=== PATIENT | male | born 1960 | race Caucasian/White ===

== ENCOUNTER → 2016-06-08 | Outpatient (CLI) | payer BC ==
--- NOTE | ~2016-06-08 | US136 ---
[facility] A Service of [facility] RADIOLOGY TEXT RESULTS PATIENT: EZE LYMAN LOCATION: CNIV : 58 UNIT #: [id number] AGE: [address]: Jyoti Wagner MD SEX: M ORDER DR: [id number] [place], [place] [address] [id number] O MR#: [id number] Acc #: [id number] NAME: EZE LYMAN : 1960 SEX: M STUDY DATE/TIME: 06/08/2016 9:08 UNIT: CNIV ROOM: STUDY DESCRIPTION: U/L [facility] Art Study [facility] Bil Attending Physician: Jyoti Wagner M.D. Referring Physician: Jyoti Wagner M.D. Ordering Physician: Jyoti Wagner M.D. Primary Care Physician: Jyoti Wagner M.D. MEDICAL IMAGING REPORT This report is preliminary unless electronic signature is present EXAM Ankle-brachial indices, 06/08/2016 HISTORY Claudication FINDINGS The right brachial pressure is 189 and the left brachial pressure is 184. The right dorsalis pedis pressure is 153, posterior tibial 178, and toe 72 for ankle-brachial index of 0.94. The left dorsalis pedis pressure is 79, posterior tibial 88, and toe 64 for an ankle-brachial index of 0.47. Doppler waveform analysis indicates a biphasic signal in the right posterior tibial and dorsalis pedis arteries and a monophasic signal in the left posterior tibial and dorsalis pedis arteries. Pulse volume recording tracings are significantly dampened in the left ankle compared to the right. IMPRESSION Normal perfusion to the right leg with an ankle-brachial index of 0.94. Severe ischemia of the left leg with ankle-brachial index of 0.47. Dictated by... José Birch M.D. THIS IS AN ELECTRONICALLY VERIFIED REPORT José Birch M.D. at 06/09/2016 7:28 AM MONIQUE/hyacinth [facility] A Service of [facility] RADIOLOGY TEXT RESULTS PATIENT: EZE LYMAN LOCATION: CNIV : 58 UNIT #: [id number] AGE: [address]: Jyoti Wagner MD SEX: M ORDER DR: TD: 06/08/2016 16:51 JOB #: [id number] MEDICAL IMAGING REPORT Page 1 of 1 COPY
== END | disposition home or self-care (01) ==
LOC: CNIV 09:00
DX: I73.9 Peripheral vascular disease, unspecified (principal)
CPT/HCPCS: 93922